=== PATIENT | male | born 1985 | race Caucasian/White ===

== ENCOUNTER 2024-01-07 13:06 | Outpatient (AMB) | payer OTHER, SELFPAY ==
--- NOTE | 2024-01-07 13:21 | MHC.OFFVIS ---
Intake Visit Reasons: urinary frequency Intake Note: New Patient is present for Urinary Frequency Childhood History of Chronic Urinary Incontinence Urology Med: Oxybutynin Antibiotic Allergies: None Blood Thinner: None PVR: 0 Attendance Secretary Required: No Accompanied by: Self / Same As Patient Allergies No Known Allergies Allergy (Verified 01/07/24 13:45) HPI Comments Details: Brayan is a 38 year old male. He reports he gets up more then twice during the night. Patient states he has seen other urologists and was treated in the past with oxybutynin, States that it did help with Urge but did not help with Urinary Frequency. Patient denies history of UTI or infections. No family hx of Bladder or Prostate cancer. Discussed further evaluation with renal and bladder US and cysto/hydrodistention. Will empirically trial course of abx for possible prostatitis. [facility] Medical History Urinary incontinence Male infertility Rectal pain Family History Other Breast cancer Diabetes mellitus Pancreatic cancer Social History Patient Tobacco Use Status: Never used Tobacco Review of Systems Const All systems reviewed & are unremarkable except as noted in HPI and below Reports no additional complaints Eyes Reports no additional complaints ENT Reports no additional complaints Card Reports no additional complaints Resp Reports no additional complaints GI Reports no additional complaints Reports as per HPI Musc Reports no additional complaints Skin/Breast Reports system reviewed and no additional complaints, except as documented Neuro Reports no additional complaints Psych Reports no additional complaints Endo Reports no additional complaints Jozef/Lymph Reports no additional complaints Aller/Immun Reports no additional complaints Physical Exam Const General: healthy appearing, no acute distress and well developed Orientation/consciousness: patient oriented x3 HEENT Head: Yes normocephalic and Yes atraumatic Eyes Conjunctivae: conjunctivae normal Neck Neck: Yes normal visual inspection Chest Chest palpation & inspection: normal inspection of the chest Resp Effort & Inspection: normal respiratory effort Cardio Rate: regular rate GI Inspection: Yes normal to inspection Palpation (GI): Soft to palpation Neuro General: patient oriented x3 Extrem General: No pedal edema Psych Appearance: grossly normal Affect: normal affect Office Procedures Post Void Residual Post Residual Void Post Void Residual (PVR): 0 [id number]-Yqfs Void Residual by ultrasound Results AMB Urinalysis, Automated UA Leukoctes 0 Leanne/uL Last Edit by Hortencia Martines, A on 01/07/24 13:47 UA Nitrite Negative Last Edit by Hortencia Martines, A on 01/07/24 13:47 UA Urobilinogen 0.2 mg/dL Last Edit by Hortencia Martines, A on 01/07/24 13:47 UA Protein 0 mg/dL Last Edit by Hortencia Martines, A on 01/07/24 13:47 UA pH 6.0 Last Edit by Hortencia Martines, A on 01/07/24 13:47 UA Blood 0 Saravanan/uL Last Edit by Hortencia Martines, A on 01/07/24 13:47 UA Specific [place] 1.005 Last Edit by Hortencia Martines, A on 01/07/24 13:47 UA Ketone Negative Last Edit by Hortencia Martines, A on 01/07/24 13:47 UA Bilirubin 0 mg/dL Last Edit by Hortencia Martines, A on 01/07/24 13:47 UA Glucose 0 mg/dL Last Edit by Hortencia Martines, A on 01/07/24 13:47 Results Reviewed Results Reviewed: Laboratory Last Values Urine pH (Auto) 6.0 01/07/24 13:46 Specific [place] (Auto) 1.005 01/07/24 13:46 Urine Protein (Auto) 0 mg/dL 01/07/24 13:46 Glucose (UA)(Auto) 0 mg/dL 01/07/24 13:46 Urine Ketones (Auto) Negative 01/07/24 13:46 Urine Blood (Auto) 0 Saravanan/uL 01/07/24 13:46 Urine Nitrite (Auto) Negative 01/07/24 13:46 Urine Bilirubin (Auto) 0 mg/dL 01/07/24 13:46 Urine Urobilinogen (Auto) 0.2 mg/dL 01/07/24 13:46 Leukocyte Esterase (Auto) 0 Leanne/uL 01/07/24 13:46 Assessment & Plan Assessment & Plan (1) Prostatitis: Code(s): N41.9 - Inflammatory disease of prostate, unspecified Category: Medical (2) Urinary frequency: Code(s): R35.0 - Frequency of micturition Category: Medical (3) Urgency-frequency syndrome: Code(s): N32.81 - Overactive bladder Category: Medical Plan US renal/bladder, cysto hydrodistension Orders: Orders AMB Urinalysis Automated 01/07/24 Z13.9 - Encounter for screening, unspecified AMB Post Void Residual by ultrasound 01/07/24 R32 - Unspecified urinary incontinence Medications: New sulfamethoxazole-trimethoprim 800-160 mg (Bactrim DS) 1 tab PO BID 14 tabs 0RF Patient Instructions: The patient had an opportunity to ask questions regarding treatment plan. The patient expressed understanding and agreement with the above treatment plan. The patient is aware they should contact our office by phone for worsening of their current condition or the appearance of new symptoms. Compliance is encouraged with any medications and followup testing that is ordered. It is a privilege to be allowed the opportunity to participate in the urologic care of your patient. If you have any questions or concerns regarding treatment for the above conditions please do not hesitate to contact me. The office telephone contact is [phone]. This note is constructed in part using voice recognition software. While every effort has been made to ensure accuracy unit tender errors may have been included. Yours sincerely, Teresa Holland MD Coding Level of Care Code New Pt Level 4 (61951) Diagnoses Prostatitis N41.9 Urinary frequency R35.0 Urgency-frequency syndrome N32.81 CPT Codes Post Residual Void - PVR CPT Code: 68726-Hedd Void Residual by ultrasound ([id number])
== END 2024-01-07 14:44 | disposition home or self-care (01) ==
PROVIDERS: PCP Internal Medicine; Visit Provider Urology
DX: N41.9 Inflammatory disease of prostate, unspecified (principal); R35.0 Frequency of micturition; N32.81 Overactive bladder
CPT/HCPCS: 99204

== ENCOUNTER → 2024-01-07 13:06 | Outpatient (BNVA) | payer OTHER, SELFPAY | PROVIDERS: PCP Internal Medicine; Visit Provider Urology | DX: N41.9 Inflammatory disease of prostate, unspecified (principal); R35.0 Frequency of micturition; N32.81 Overactive bladder | CPT/HCPCS: 51798; 81003 ==

== ENCOUNTER 2024-02-29 10:05 | Outpatient (REF) | payer OTHER, SELFPAY | END 2024-02-29 10:06 | disposition home or self-care (01) | LOC: HO.US 10:05 | PROVIDERS: PCP Internal Medicine; Visit Provider Urology | DX: R35.0 Frequency of micturition (principal) | CPT/HCPCS: 76770 ==

== ENCOUNTER 2024-03-01 05:55 | Day surgery (SDC) | payer OTHER, SELFPAY ==
--- NOTE | 2024-02-29 09:09 | HO.ANESPROP2 ---
Documented by User: Zena Purvis NP 02/29/24 09:10 HPI - Anesthesia Eval Consult details Narrative: 38yo M for Cystoscopy Hydrodistention of Bladder PMFSH Active Problems Active Problems: All Active Problems Urgency-frequency syndrome (Acute) Urinary frequency (Acute) Prostatitis (Acute) Past Medical History Medical History Urinary incontinence Male infertility Rectal pain Family History Family History Other Breast cancer Diabetes mellitus Pancreatic cancer Surgical History Surgical History Hx of hand surgery H/O colonoscopy Social History Social History Patient Tobacco Use Status: Never used Tobacco Use of substances other than those prescribed or required for medical reasons: No Are you DNR?: No Advance Directives: No Advance Directives Information Provided: Yes Recently lost weight without trying: No Meds Allergies Allergy/AdvReac Type Severity Reaction Status Date / Time No Known Allergies Allergy Verified 03/01/24 06:11 Home Medications ?Medication ?Instructions ?Recorded ?Confirmed ?Last Taken ?Type No Known Home Meds 03/01/24 03/01/24 Unknown History Assessment and Plan Assessment Anesthesia Assessment: Chart Reviewed Documented by User: Altagracia Roberson MD 03/01/24 07:19 PMFSH Past Medical History Medical History Urinary incontinence Male infertility Rectal pain Family History Family History Other Breast cancer Diabetes mellitus Pancreatic cancer Family history of problems with anesthesia: No Surgical History Surgical History Hx of hand surgery H/O colonoscopy History of Problems with Anesthesia: No Social History Social History Patient Tobacco Use Status: Never used Tobacco Use of substances other than those prescribed or required for medical reasons: No Are you DNR?: No Advance Directives: No Advance Directives Information Provided: Yes Recently lost weight without trying: No Meds Allergies Allergy/AdvReac Type Severity Reaction Status Date / Time No Known Allergies Allergy Verified 03/01/24 06:11 Home Medications ?Medication ?Instructions ?Recorded ?Confirmed ?Last Taken ?Type No Known Home Meds 03/01/24 03/01/24 Unknown History Exam Height,Weight and Vital Signs: Height 5 ft 11 in Weight 77.111 kg Vital Signs Temp Pulse Resp BP Pulse Ox O2 Del Method 03/01/24 06:28 98.4 F 81 15 112/72 96 Room Air Airway Mallampati Class: II TM Dist: >3cm Neck ROM: Full Loose/Missing/Broken Teeth: No Heart: RRR Lungs: CTAB Assessment and Plan Assessment Anesthesia Assessment: Anesthesia Plan Discussed and Chart Reviewed Final Anesthetic Review Family History of Problems with Anesthesia: No History of Problems with Anesthesia: No NPO: Yes ASA Class: I Final Preanesthetic Review: No Changes in Pt Med Stat, Meds/Allgs Chart Reviewed, Consent Obtained/Reviewed and Anes Risks/Benef Reviewed Patient Risk: Low Procedure Risk: Low Assessment/Block/Sedation in SS: Assess/Block/Sedation-SS Anesthetic Plan Anesthetic Plan: GA Disposition: Standard PACU
[2024-03-01 06:18] VITALS: BMI 23.7
[2024-03-01 06:28] VITALS: BP 112/72; PULSE 81; RESP 15; TEMP 36.9; O2SAT 96
[2024-03-01] MEDS: Lactated Ringers 1,000 ML 100 ML IVCONT (06:36)
--- NOTE | 2024-03-01 07:34 | MHC.SHP ---
Pre-Procedural Eval Section A - 24 Hr Update-Section A only Date of Service: 03/01/24 The patient is an INPATIENT: No The patient has been examined within 24 hours of the surgical procedure. The History & Physical has been completed within 30 days and I have reviewed it.: Yes Section B - Complete if H&P > 30 days Chief Complaint: Overactive bladder Allergies: Allergies Allergy/AdvReac Type Severity Reaction Status Date / Time No Known Allergies Allergy Verified 03/01/24 06:11 Plan Diagnosis/Plan: Unchanged I have reviewed the history and physical and performed a pertinent physical examination on my patient. No changes have occurred unless specified. Cystoscopy Hydrodistension. Discussed risks to include but not limited to, blood in the urine, burning with urination, urgency. Time Spent With Patient Time: Total time managing care of this patient today ____ minutes.
[2024-03-01 08:19] VITALS: BP 106/73; PULSE 71; RESP 16; TEMP 36.8; O2SAT 98
--- NOTE | 2024-03-01 08:23 | W.PM.OPN ---
Operative Note Operative Note Date of Service: 03/01/24 Narrative: PREOP DIAGNOSIS: Urinary frequency, pelvic pain, chronic prostatitis POSTOP DIAGNOSIS: Urinary frequency, pelvic pain, chronic prostatitis PROCEDURE: Cystoscopy hydrodistention, prostate massage Anethesia: General Surgeon: Dr. Teresa Holland Details of procedure: The patient was brought into the operating room placed on the OR table in supine position. 2 g of Ancef IV. General anesthesia was administered. The patient was repositioned into lithotomy position, prepped and draped in the usual sterile fashion. Time-out was done per protocol. A 22 fr cystoscope was placed transurethrally into the bladder. The bulbous urethra was within normal limits. The prostatic urethra was nonobstructive. Urine was drained from the bladder. The right and left ureteral orifices were visualized. Clear efflux of urine was seen bilaterally. The entire bladder was visualized. There were no suspicious bladder lesions seen. There were mild to moderate trabeculations noted. The bladder was filled with sterile water at 80 cm of water pressure under gravity. The bladder was distended for 2 minutes. Bladder capacity measured 450 mL. Revisualization of the bladder, noted no glomerulations. No Beto ulcerations. The bladder was refilled with sterile water again at 80 cm of water pressure under gravity. The bladder was distended for 3 minutes. The fluid was drained from the bladder and measured 450 mL. The cystoscope was removed. 2% lidocaine urojet was passed transurethrally, digital rectal exam performed, the prostate was palpated no nodularity, prostate massage performed. The patient was brought out of anesthesia and taken to recovery in stable condition. Complications: None EBL: Minimal Drains: none
[2024-03-01 08:24] VITALS: BP 111/69; PULSE 71; RESP 16; O2SAT 99
[2024-03-01 08:29] VITALS: BP 116/72; PULSE 68; RESP 16; O2SAT 99
[2024-03-01 08:34] VITALS: BP 117/79; PULSE 81; RESP 16; O2SAT 100
[2024-03-01] MEDS: Acetaminophen 325 MG TABLET 650 MG PO (08:43)
[2024-03-01] MEDS: Phenazopyridine HCL 200 MG TABLET PO (08:43)
[2024-03-01 08:49] VITALS: BP 115/71; PULSE 69; RESP 16; TEMP 36.8; O2SAT 100
== END 2024-03-01 09:28 | disposition home or self-care (01) ==
PROVIDERS: PCP Internal Medicine; Visit Provider Urology
PROC: 0T7B7ZZ Dilation of Bladder, Via Natural or Artificial Opening (ICD-10-PCS; CPT 52260; principal; 2024-03-01 07:30)
DX: N32.81 Overactive bladder (principal); N41.1 Chronic prostatitis; R35.0 Frequency of micturition; R32 Unspecified urinary incontinence; R10.2 Pelvic and perineal pain; K62.89 Other specified diseases of anus and rectum; N46.9 Male infertility, unspecified; Z79.899 Other long term (current) drug therapy
CPT/HCPCS: 52260; J0690; J1644; J2003; J2405; J2704; J2795; J3010

== ENCOUNTER → 2024-03-01 05:55 | Outpatient (BNV) | payer OTHER, SELFPAY | PROVIDERS: PCP Internal Medicine; Visit Provider Urology | DX: N32.81 Overactive bladder (principal) | CPT/HCPCS: 52260 ==

== ENCOUNTER → 2024-03-14 14:01 | Outpatient (BNVA) | payer OTHER, SELFPAY | PROVIDERS: PCP Internal Medicine; Visit Provider Urology | DX: N32.81 Overactive bladder (principal); N41.9 Inflammatory disease of prostate, unspecified; R35.0 Frequency of micturition | CPT/HCPCS: 51798 ==

== ENCOUNTER 2024-03-24 13:29 | Outpatient (AMB) | payer OTHER, SELFPAY ==
--- NOTE | 2024-03-24 10:08 | A.OFFVIS_ITS ---
Intake Visit Reasons: Hydrodistention- follow up Intake Note: Patient is present for Urology Med: Antibiotic Allergy: Blood Thinner: Last PVR: 0ml Todays PVR: 31ml's Patient Symptoms: Patient states he has no symptoms after the procedure, he only noticed the stream is weaker Warehouse Inventory Clerk Required: No Allergies No Known Allergies Allergy (Verified 03/24/24 13:50) HPI Comments Details: 03/24/24--Brayan is a 38-year-old male who was initially evaluated on 01/05/2024 with irritative voiding symptoms of frequency. He is status post cystoscopy hydrodistention on 03/01/24-cystoscopy findings mild to moderate trabeculations noted bladder capacity under anesthesia undergrad for the measured 450 mL, mild to moderate trabeculations noted. The bladder was filled with sterile water at 80 cm of water pressure under gravity. The bladder was distended for 2 minutes. Bladder capacity measured 450 mL. Revisualization of the bladder, noted no glomerulations. No Beto ulcerations. The bladder was refilled with sterile water again at 80 cm of water pressure under gravity. The bladder was distended for 3 minutes. The fluid was drained from the bladder and measured 45 0 mL. T 01/05/24--Brayan is a 38 year old male. He reports he gets up more then twice during the night. Patient states he has seen other urologists and was treated in the past with oxybutynin, States that it did help with Urge but did not help with Urinary Frequency. Patient denies history of UTI or infections. No family hx of Bladder or Prostate cancer. Discussed further evaluation with renal and bladder US and cysto/hydrodistention. Will empirically trial course of abx for possible prostatitis. PFSH Medical History Urinary incontinence Male infertility Rectal pain Surgical History Hx of hand surgery H/O colonoscopy Family History Other Breast cancer Diabetes mellitus Pancreatic cancer Social History Patient Tobacco Use Status: Never used Tobacco Office Procedures Post Void Residual Post Residual Void Post Void Residual (PVR): 31 [id number] Void Residual by ultrasound Results AMB Urinalysis, Automated UA Leukoctes 0 Leanne/uL Last Edit by Savannah Lopez, JOSE on 03/24/24 13:53 UA Nitrite Negative Last Edit by Savannah Lopez, JOSE on 03/24/24 13:53 UA Urobilinogen 0.2 mg/dL Last Edit by Savannah Lopez, JOSE on 03/24/24 13:5 3 UA Protein 0 mg/dL Last Edit by Savannah Lopez, FIELD COORDINATOR on 03/24/24 13:53 UA pH 6.0 Last Edit by Savannah Lopez, FIELD COORDINATOR on 03/24/24 13:53 UA Blood 0 Saravanan/uL Last Edit by Savannah Lopez, FIELD COORDINATOR on 03/24/24 13:53 UA Specific [place] 1.020 Last Edit by Savannah Lopez, JOSE on 03/24/24 13: 53 UA Ketone Negative Last Edit by Savannah Lopez, JOSE on 03/24/24 13:53 UA Bilirubin 0 mg/dL Last Edit by Savannah Lopez, FIELD COORDINATOR on 03/24/24 13:53 UA Glucose 0 mg/dL Last Edit by Savannah Lopez, FIELD COORDINATOR on 03/24/24 13:53 Results Reviewed Results Reviewed: Laboratory Last Values Urine pH (Auto) 6.0 03/24/24 13:51 Specific [place] (Auto) 1.020 03/24/24 13:51 Urine Protein (Auto) 0 mg/dL 03/24/24 13:51 Glucose (UA)(Auto) 0 mg/dL 03/24/24 13:51 Urine Ketones (Auto) Negative 03/24/24 13:51 Urine Blood (Auto) 0 Saravanan/uL 03/24/24 13:51 Urine Nitrite (Auto) Negative 03/24/24 13:51 Urine Bilirubin (Auto) 0 mg/dL 03/24/24 13:51 Urine Urobilinogen (Auto) 0.2 mg/dL 03/24/24 13:51 Leukocyte Esterase (Auto) 0 Leanne/uL 03/24/24 13:51 Assessment & Plan Assessment & Plan (1) Urgency-frequency syndrome: Code(s): N32.81 - Overactive bladder Category: Medical (2) Screening PSA (prostate specific antigen): Code(s): Z12.5 - Encounter for screening for malignant neoplasm of prostate Category: Medical Orders: Orders PSA,Total (Free>4and<10) Today N32.81 - Overactive bladder, Z12.5 - Encounter for screening for malignant neoplasm of prostate AMB Urinalysis Automated Today Z13.9 - Encounter for screening, unspecified AMB Post Void Residual by ultrasound Today N32.81 - Overactive bladder Medications: New solifenacin 10 mg PO DAILY 30 tabs 2RF Coding Diagnoses Urgency-frequency syndrome N32.81 Screening PSA (prostate specific antigen) Z12.5 CPT Codes Post Residual Void - PVR CPT Code: 25999-Mcbz Void Residual by ultrasound ([id number])
--- NOTE | 2024-03-24 13:54 | A.OFFVIS_ITS ---
Intake Visit Reasons: Hydrodistention- follow up Allergies No Known Allergies Allergy (Verified 03/24/24 13:50) PFSH Medical History Urinary incontinence Male infertility Rectal pain Surgical History Hx of hand surgery H/O colonoscopy Family History Other Breast cancer Diabetes mellitus Pancreatic cancer Social History Patient Tobacco Use Status: Never used Tobacco Office Procedures Post Void Residual Post Residual Void Post Void Residual (PVR): 31 [id number] Void Residual by ultrasound Results AMB Urinalysis, Automated UA Leukoctes 0 Leanne/uL Last Edit by Savannah Lopez CMA on 03/24/24 13:53 UA Nitrite Negative Last Edit by Savannah Lopez CMA on 03/24/24 13:53 UA Urobilinogen 0.2 mg/dL Last Edit by Savannah Lopez CMA on 03/24/24 13:5 3 UA Protein 0 mg/dL Last Edit by Savannah oLpez CMA on 03/24/24 13:53 UA pH 6.0 Last Edit by Savannah Lopez CMA on 03/24/24 13:53 UA Blood 0 Saravanan/uL Last Edit by Savannah Lopez CMA on 03/24/24 13:53 UA Specific [place] 1.020 Last Edit by Savannah Lopez CMA on 03/24/24 13: 53 UA Ketone Negative Last Edit by Savannah Lopez CMA on 03/24/24 13:53 UA Bilirubin 0 mg/dL Last Edit by Savannah Lopez CMA on 03/24/24 13:53 UA Glucose 0 mg/dL Last Edit by Savannah Lopez CMA on 03/24/24 13:53 Results Reviewed Results Reviewed: Laboratory Last Values Urine pH (Auto) 6.0 03/24/24 13:51 Specific [place] (Auto) 1.020 03/24/24 13:51 Urine Protein (Auto) 0 mg/dL 03/24/24 13:51 Glucose (UA)(Auto) 0 mg/dL 03/24/24 13:51 Urine Ketones (Auto) Negative 03/24/24 13:51 Urine Blood (Auto) 0 Saravanan/uL 03/24/24 13:51 Urine Nitrite (Auto) Negative 03/24/24 13:51 Urine Bilirubin (Auto) 0 mg/dL 03/24/24 13:51 Urine Urobilinogen (Auto) 0.2 mg/dL 03/24/24 13:51 Leukocyte Esterase (Auto) 0 Leanne/uL 03/24/24 13:51 Assessment & Plan Assessment & Plan Orders: Orders AMB Urinalysis Automated Today Z13.9 - Encounter for screening, unspecified AMB Post Void Residual by ultrasound Today N32.81 - Overactive bladder Coding CPT Codes Post Residual Void - PVR CPT Code: 84294-Hhnj Void Residual by ultrasound ([id number])
== END 2024-03-24 14:40 | disposition home or self-care (01) ==
PROVIDERS: PCP Internal Medicine; Visit Provider Urology
DX: Z13.9 Encounter for screening, unspecified (principal)

== ENCOUNTER → 2024-03-24 13:29 | Outpatient (BNVA) | payer OTHER, SELFPAY | PROVIDERS: PCP Internal Medicine; Visit Provider Urology | DX: N32.81 Overactive bladder (principal); Z12.5 Encounter for screening for malignant neoplasm of prostate | CPT/HCPCS: 51798; 81003 ==